=== PATIENT | female | born 1985 | race Caucasian/White ===

== ENCOUNTER 2017-06-05 11:17 | Outpatient (CLI) | payer MEDICAID ==
[~2017-06-05] VITALS: Ht 170.2 cm; Wt 83.3 kg
[2017-06-05 11:40] VITALS: Ht 170.2 cm; Wt 83.3 kg
[2017-06-05] MEDS ORDERED: PREN1TAB79 PO (11:40)
[2017-06-05 11:41] VITALS: BP 111/71; PULSE 94; RESP 20
--- NOTE | 2017-06-05 13:38 | RADRPT ---
PROCEDURE: OB ultrasound CLINICAL INDICATION: Leaking amniotic fluid TECHNIQUE: Multiple transverse and longitudinal OB images of the pelvis were obtained. The images were reviewed on a high-resolution PACS workstation. COMPARISON: None FINDINGS: A single live intrauterine is seen. The presentation is vertex. The placenta is grade 1 a nd anterior in location. No evidence of placenta abruption or previa is seen. The heart rate i s 142 beats per minute. The amniotic fluid index is 13.2 cm. movement 2 tone 2 breathing 2 Amniotic fluid 2 IMPRESSION: Biophysical profile of 05/25. RPTAT: HPNM Physician Han Date Time Electronically viewed and signed by Physician Han on 06/05/2017 13:38 /
--- NOTE | 2017-06-05 13:39 | RADRPT ---
PROCEDURE: OB ultrasound CLINICAL INDICATION: Leaking amniotic fluid TECHNIQUE: Multiple transverse and longitudinal OB images of the pelvis were obtained. The images were reviewed on a high-resolution PACS workstation. COMPARISON: None FINDINGS: A single live intrauterine is seen. The presentation is vertex. The placenta is grade 1 a nd anterior in location. The cervix is closed. No evidence of funneling is seen. The cervix length i s 3.7 cm. The heart rate is 130 beats per minute. IMPRESSION: Cervix length = 3.7 cm. RPTAT: HPNM Physician Han Date Time Electronically viewed and signed by Physician Han on 06/05/2017 13:39 /
--- NOTE | 2017-06-05 13:59 | QN ---
Documentation Comment Progress Note Chilo Carson/Dr White 32 y.o. with an IUP at 34w 1d sent from the clinic with c/o clear d/c to r /o PPROM. Pt states that the d/c is mucousy. No VB. +FM. PMHx: none. PSHx: none. POBHx: x 1. NKDA. T=98.1 BP 111/71. NST: baseline 140 bpm with accels to 155 bpm. No decels. No UC's. Vag exam: clear mucous only; ROM-plus negative. BPP 8/8. RODOLFO 13.2. U/A negative. A: IUP at 34w 1d. Membranes intact. P: D/C home. ALAINA MOLINA MD Jun 05, 2017 13:59
== END 2017-06-05 14:13 | disposition home or self-care (01) ==
LOC: OBT 11:17 → L-D 11:22 → OBT 14:13
PROVIDERS: ATTEND Obstetrics & Gynecology
DX: O26.893 Other specified pregnancy related conditions, third trimester (principal); Z3A.34 34 weeks gestation of pregnancy; N89.8 Other specified noninflammatory disorders of vagina
CPT/HCPCS: 76817; 76818; 84112; Z7500; G0463

== ENCOUNTER 2017-07-08 18:41 | Outpatient (CLI) | payer MEDICAID ==
[~2017-07-08] VITALS: Ht 170.2 cm; Wt 84.7 kg
[~2017-07-08 18:41] MED LIST: PREN1TAB79 PO
[2017-07-08 19:00] VITALS: Ht 170.2 cm; Wt 84.7 kg
[2017-07-08 19:01] VITALS: BP 127/72; PULSE 93; RESP 18
--- NOTE | 2017-07-08 20:04 | RADRPT ---
PROCEDURE: Obstetrical ultrasound for biophysical profile CLINICAL INDICATION: Biophysical profile. . TECHNIQUE: Obstetrical ultrasound of the uterus for biophysical profile. Transabdominal views are obtained. COMPARISON: 07/06/2017 FINDINGS: Single intrauterine gestation. Presentation: Cephalic. Placenta: Anterior. No evidence of placental abruption. No evidence of placenta previa. breathing movement = 2/2 tone = 2/2 motion = 2/2 RODOLFO = 2/2 RODOLFO = 9.1 cm heart rate: 150 beats per minute IMPRESSION: Single intrauterine gestation. Biophysical profile 05/25 RPTAT: AADD .Migel Acevedo MD, MD Date Time Electronically viewed and signed by .Migel Acevedo MD, on 07/08/2017 20:04 .B/
--- NOTE | 2017-07-08 21:05 | TRIAGE ---
OB Triage Datetime Report Generated by CPN: 07/08/2017 21:05 Datetime: 07/08/2017 20:33 Contraction Comments: TOCO REMOVED Comments: US REMOVED Datetime: 07/08/2017 20:30 Stage of : OB Triage Labor Evaluation Frequency: NONE Monitor Mode: External Resting Tone [place]: Relaxed Contraction Comments: PT DENIES FEELING CONTRACTIONS Heart Rate FHR Baseline Rate: 145 Monitor Mode: External US Variability: Moderate 6-25 bpm Accelerations: 15X15 Decelerations: None Datetime: 07/08/2017 20:00 Stage of : OB Triage Labor Evaluation Frequency: NONE Monitor Mode: External Resting Tone [place]: Relaxed Contraction Comments: PT DENIES FEELING ANY UCS Heart Rate FHR Baseline Rate: 145 Monitor Mode: External US Variability: Moderate 6-25 bpm Accelerations: 15X15 Decelerations: None Pain Assessment Pain Scale: 0 Pain Presence: None/Denies Pain Goal: 3 Datetime: 07/08/2017 19:56 Vaginal Exam Dilatation (cms): 0.0 Effacement (%): 0 Station: -3 Membrane Status: Intact Datetime: 07/08/2017 19:50 Stage of : OB Triage Datetime: 07/08/2017 19:04 Stage of : OB Triage Datetime: 07/08/2017 18:56 Stage of : OB Triage Assessment Type: Triage Maternal Assessment Level of Consciousness: Fully Conscious DTR's/Clonus: DTRs 2+; No Clonus Headache: Denies Blurred Vision: No Respiratory Effort: Unlabored; Regular Rhythm; Equal Expansion Breath Sounds, Left: Clear and Equal Breath Sounds, Right: Clear and Equal Nausea/Vomiting: Denies RUQ Epigastric Pain: Denies Facial Edema: None Temperature Route: Axillary Fall Risk Assessment History of Falling: (0) No Secondary Diagnosis: (0) No Ambulatory Aid: (0) Bedrest/Nurse Assist IV Therapy: (0) No Gait: (0) Normal/Bedrest/Immobile Mental Status: (0) Oriented to Own Ability Fall Score: 0 Fall Risk Score Definition: No Risk: No action required Labor Evaluation Frequency: 0 Monitor Mode: External Pattern: Normal: <= 5 Contractions in 10 Minutes Resting Tone [place]: Relaxed Heart Rate FHR Baseline Rate: 145 Monitor Mode: External US Variability: Moderate 6-25 bpm Decelerations: None Pain Assessment Pain Scale: 0 Pain Presence: None/Denies Pain Type: N/A Pain Goal: 3 Pain Relief Measures: Comfort Measures Datetime: 07/08/2017 18:54 Time of Arrival: 07/08/2017 18:37 EGA: 39.1 Arrived By: Ambulatory Arrived From: Home Chief Complaint: F/U REPEAT NST/BPP FOR HX VARIABLES, DENIES LEAKING OF FLUID, BLEEDING OR UC'S Movement: Present Contractions: Denies/Absent Rupture of Membranes: Denies Vaginal Bleeding: None Vaginal Discharge: Denies Recent Sexual Intercouse: Denies Abdominal Trauma: Not Applicable Patient Complaints: None Time Provider Notified: 07/08/2017 19:04 Provider Notified: [email or web address] Initial Plan: MONITOR, BPP Datetime: 07/06/2017 11:59 Vaginal Exam Dilatation (cms): 0.0 Exam By: dr ghayoori Datetime: 07/06/2017 10:07 Labor Evaluation Frequency: 0 Monitor Mode: External Resting Tone [place]: Relaxed Heart Rate FHR Baseline Rate: 140 Monitor Mode: External US FHR Baseline Changes: No Baseline Change Variability: Moderate 6-25 bpm Accelerations: 15X15 Decelerations: None Category: Category I Pain Presence: None/Denies Datetime: 07/06/2017 08:59 Labor Evaluation Frequency: occasional irritability Monitor Mode: External Quality: Mild Resting Tone [place]: Relaxed Heart Rate FHR Baseline Rate: 140 Monitor Mode: External US FHR Baseline Changes: No Baseline Change Variability: Moderate 6-25 bpm Accelerations: 15X15 Decelerations: None Category: Category I Pain Presence: None/Denies Datetime: 07/06/2017 07:42 Assessment Type: Ongoing Assessment Labor Evaluation Frequency: irritability Monitor Mode: External Quality: Mild Resting Tone [place]: Relaxed Contraction Comments: pt denies feeling contractions or cramping, denies leaking of fluid or bloo d from vagina Heart Rate FHR Baseline Rate: 130 Monitor Mode: External US FHR Baseline Changes: No Baseline Change Variability: Moderate 6-25 bpm Accelerations: 15X15 Decelerations: None Category: Category I Datetime: 07/06/2017 07:37 Assessment Type: Ongoing Assessment Maternal Assessment Level of Consciousness: Fully Conscious DTR's/Clonus: DTRs 2+; No Clonus Headache: Denies Blurred Vision: No Respiratory Effort: Unlabored; Regular Rhythm; Equal Expansion Breath Sounds, Left: Clear and Equal Breath Sounds, Right: Clear and Equal Nausea/Vomiting: Denies RUQ Epigastric Pain: Denies Facial Edema: None Fall Risk Assessment History of Falling: (0) No Secondary Diagnosis: (0) No Ambulatory Aid: (0) Bedrest/Nurse Assist Gait: (0) Normal/Bedrest/Immobile Mental Status: (0) Oriented to Own Ability Datetime: 07/06/2017 07:00 Labor Evaluation Frequency: x1 Monitor Mode: External Duration (sec)2399: 60 Quality: Mild Resting Tone [place]: Relaxed Heart Rate FHR Baseline Rate: 135 Monitor Mode: External US Variability: Moderate 6-25 bpm Accelerations: 15X15 Decelerations: None Category: Category I Pain Presence: None/Denies Datetime: 07/06/2017 06:00 Labor Evaluation Frequency: 0 Monitor Mode: External Duration (sec)2399: denies Resting Tone [place]: Relaxed Heart Rate FHR Baseline Rate: 135 Monitor Mode: External US Variability: Moderate 6-25 bpm Accelerations: 15X15 Decelerations: None Category: Category I Pain Presence: None/Denies Pain Type: N/A Datetime: 07/06/2017 05:08 Stage of : Antepartum Temperature Route: Oral Pain Presence: None/Denies Datetime: 07/06/2017 05:00 Labor Evaluation Frequency: x2 Monitor Mode: External Duration (sec)2399: 60-80 Quality: Mild Resting Tone [place]: Relaxed Heart Rate FHR Baseline Rate: 135 Monitor Mode: External US Variability: Moderate 6-25 bpm Accelerations: 15X15 Decelerations: None Category: Category I Pain Presence: None/Denies Pain Type: N/A Datetime: 07/06/2017 04:00 Labor Evaluation Frequency: x2 Monitor Mode: External Duration (sec)2399: 70-80 Quality: Mild Resting Tone [place]: Relaxed Heart Rate FHR Baseline Rate: 140 Monitor Mode: External US Variability: Moderate 6-25 bpm Accelerations: 15X15 Decelerations: None Category: Category I Pain Presence: None/Denies Datetime: 07/06/2017 03:00 Labor Evaluation Frequency: x3 Monitor Mode: External Duration (sec)2399: 40-70 Quality: Mild Resting Tone [place]: Relaxed Heart Rate FHR Baseline Rate: 135 Monitor Mode: External US Variability: Moderate 6-25 bpm Accelerations: 15X15 Decelerations: None Category: Category I Datetime: 07/06/2017 02:00 Labor Evaluation Frequency: irregular Monitor Mode: External Duration (sec)2399: 40-70 Quality: Mild Resting Tone [place]: Relaxed Heart Rate FHR Baseline Rate: 135 Monitor Mode: External US Variability: Moderate 6-25 bpm Accelerations: 15X15 Decelerations: None Category: Category I Datetime: 07/06/2017 01:00 Labor Evaluation Frequency: 0 Monitor Mode: External Resting Tone [place]: Relaxed Heart Rate FHR Baseline Rate: 135 Monitor Mode: External US Variability: Moderate 6-25 bpm Accelerations: 15X15 Decelerations: None Category: Category I Datetime: 07/06/2017 00:00 Labor Evaluation Frequency: 0 Monitor Mode: External Duration (sec)2399: denies Resting Tone [place]: Relaxed Heart Rate FHR Baseline Rate: 140 Monitor Mode: External US Variability: Moderate 6-25 bpm Accelerations: 15X15 Decelerations: None Category: Category I Pain Presence: None/Denies Pain Type: N/A Datetime: 07/05/2017 23:00 Labor Evaluation Frequency: 0 Monitor Mode: External Resting Tone [place]: Relaxed Heart Rate FHR Baseline Rate: 140 Variability: Moderate 6-25 bpm Accelerations: Prolonged Decelerations: None Category: Category I Pain Presence: None/Denies Pain Type: N/A Datetime: 07/05/2017 22:00 Labor Evaluation Frequency: 0 Monitor Mode: External Duration (sec)2399: denies Resting Tone [place]: Relaxed Heart Rate FHR Baseline Rate: 140 Monitor Mode: External US Variability: Moderate 6-25 bpm Accelerations: 15X15 Decelerations: None Category: Category I Pain Presence: None/Denies Pain Type: N/A Datetime: 07/05/2017 21:00 Labor Evaluation Frequency: 0 Monitor Mode: External Duration (sec)2399: denies Resting Tone [place]: Relaxed Heart Rate FHR Baseline Rate: 135 Monitor Mode: External US Variability: Moderate 6-25 bpm Accelerations: 15X15 Decelerations: None Category: Category I Pain Presence: None/Denies Pain Type: N/A Datetime: 07/05/2017 19:57 Stage of : Antepartum Assessment Type: Ongoing Assessment Maternal Assessment Level of Consciousness: Fully Conscious DTR's/Clonus: DTRs 2+; No Clonus Headache: Denies Blurred Vision: No Respiratory Effort: Unlabored; Regular Rhythm; Equal Expansion Breath Sounds, Left: Clear and Equal Breath Sounds, Right: Clear and Equal Nausea/Vomiting: Denies RUQ Epigastric Pain: Denies Lower Extremities Edema: None Degree: None Upper Extremities Edema: None Degree: None Facial Edema: None Temperature Route: Oral Fall Risk Assessment History of Falling: (0) No Secondary Diagnosis: (0) No Ambulatory Aid: (0) Bedrest/Nurse Assist IV Therapy: (0) No Gait: (0) Normal/Bedrest/Immobile Mental Status: (0) Oriented to Own Ability Fall Score: 0 Fall Risk Score Definition: No Risk: No action required Pain Presence: None/Denies Datetime: 07/05/2017 19:55 Stage of : Antepartum Monitor Mode: External Contraction Comments: placed. Monitor Mode: External US Comments: placed Datetime: 07/05/2017 19:43 Labor Evaluation Frequency: None noted or palpated Monitor Mode: External Heart Rate FHR Baseline Rate: 135 Monitor Mode: External US Variability: Moderate 6-25 bpm Accelerations: 15X15 Decelerations: Variable (Annotations: x1) Category: Category II Pain Assessment Pain Scale: 0 Pain Presence: None/Denies Pain Type: N/A Pain Assessment Comments: Pt denies any pain Datetime: 07/05/2017 19:02 Stage of : OB Triage Datetime: 07/05/2017 19:00 Vaginal Exam Dilatation (cms): 0.0 Exam By: S ZACK Vaginal Bleeding: None Cervix, Consistency: Soft Cervix, Position: Posterior Presentation 'A': Cephalic Datetime: 07/05/2017 18:40 Stage of : OB Triage Assessment Type: Triage Maternal Assessment Level of Consciousness: Fully Conscious DTR's/Clonus: DTRs 2+; No Clonus Headache: Denies Blurred Vision: No Respiratory Effort: Unlabored; Regular Rhythm; Equal Expansion Breath Sounds, Left: Clear and Equal Breath Sounds, Right: Clear and Equal Nausea/Vomiting: Denies RUQ Epigastric Pain: Denies Facial Edema: None Temperature Route: Axillary Fall Risk Assessment History of Falling: (0) No Secondary Diagnosis: (0) No Ambulatory Aid: (0) Bedrest/Nurse Assist IV Therapy: (0) No Gait: (0) Normal/Bedrest/Immobile Mental Status: (0) Oriented to Own Ability Fall Score: 0 Fall Risk Score Definition: No Risk: No action required Labor Evaluation Frequency: 0 Monitor Mode: External Pattern: Normal: <= 5 Contractions in 10 Minutes Resting Tone [place]: Relaxed Heart Rate FHR Baseline Rate: 135 Monitor Mode: External US Variability: Moderate 6-25 bpm Accelerations: 10X10 Decelerations: Variable Category: Category II Pain Assessment Pain Scale: 0 Pain Presence: None/Denies Pain Type: N/A Pain Goal: 3 Pain Relief Measures: Comfort Measures Datetime: 07/05/2017 16:50 Time of Arrival: 07/05/2017 16:50 EGA: 38.5 Arrived By: Ambulatory Arrived From: Office Chief Complaint: SENT FROM OFFICE FOR IUGR, Movement: Present Contractions: Denies/Absent Rupture of Membranes: Denies Vaginal Discharge: Denies Recent Sexual Intercouse: Denies Abdominal Trauma: Not Applicable Patient Complaints: None Time Provider Notified: 07/05/2017 19:00 Provider Notified: GHAYOORI Initial Plan: MONITOR, BPP Datetime: 06/05/2017 13:48 Labor Evaluation Frequency: 0 Monitor Mode: External Resting Tone [place]: Relaxed Heart Rate FHR Baseline Rate: 140 Variability: Moderate 6-25 bpm Accelerations: 15X15 Decelerations: None Category: Category I Datetime: 06/05/2017 11:33 Assessment Type: Triage Maternal Assessment Level of Consciousness: Fully Conscious DTR's/Clonus: DTRs 2+; No Clonus Headache: Denies Blurred Vision: No Respiratory Effort: Unlabored; Regular Rhythm; Equal Expansion Breath Sounds, Left: Clear and Equal Breath Sounds, Right: Clear and Equal Nausea/Vomiting: Denies RUQ Epigastric Pain: Denies Lower Extremities Edema: None Upper Extremities Edema: None Facial Edema: None Fall Risk Assessment History of Falling: (0) No Secondary Diagnosis: (0) No Ambulatory Aid: (0) Bedrest/Nurse Assist IV Therapy: (0) No Gait: (0) Normal/Bedrest/Immobile Mental Status: (0) Oriented to Own Ability Fall Score: 0 Fall Risk Score Definition: No Risk: No action required Datetime: 06/05/2017 11:32 Heart Rate FHR Baseline Rate: 145 Variability: Moderate 6-25 bpm Datetime: 06/05/2017 11:31 EGA: -592.5 Datetime: 06/05/2017 11:28 Time of Arrival: 05/28/2005 11:05 Arrived By: Ambulatory Arrived From: Office Chief Complaint: discharge x2 months sent from clinic to r/o pprom. pt. states she had a urinary i nfection 3 weeks ago and was told by the clinic no more infection and discharge is normal but want t o r/o pprom Movement: Present Contractions: Denies/Absent Rupture of Membranes: Unsure Vaginal Bleeding: None Vaginal Discharge: Present Recent Sexual Intercouse: Denies Abdominal Trauma: Not Applicable Patient Complaints: Other Time Provider Notified: 06/05/2017 11:38 Provider Notified: primo Initial Plan: sravanthi,bpp, rom+, ua C_S from dr. tillman and have laborist eval. for d/c home if labs wnl Pain Presence: None/Denies Datetime: 06/05/2017 11:25 Headache: Denies Blurred Vision: No Datetime: 06/05/2017 11:22 Resting Tone [place]: Relaxed
== END 2017-07-08 20:51 | disposition home or self-care (01) ==
LOC: OBT 18:41 → L-D 18:44 → OBT 20:51
PROVIDERS: ATTEND Obstetrics & Gynecology
DX: O36.5930 Maternal care for other known or suspected poor fetal growth, third trimester, not applicable or unspecified (principal); Z3A.38 38 weeks gestation of pregnancy
CPT/HCPCS: 76818; G0463

== ENCOUNTER 2017-07-09 11:27 | Inpatient (IN) | payer MEDICAID ==
[~2017-07-09] VITALS: Ht 160 cm; Wt 83.7 kg
[2017-07-09 11:34] VITALS: Ht 160 cm; Wt 83.7 kg
[2017-07-09] MEDS: LACTATED RINGER'S 1,000 ML IV SCH ×3 (11:56→23:27)
[2017-07-09] MEDS ORDERED: MINERAL OIL LIGHT 10 ML VIAL TOP ONE (12:00)
[2017-07-09] MEDS ORDERED: OXYTOCIN 30 UNITS/LR 500 ML IV PRN (12:00)
[2017-07-09] MEDS ORDERED: LIDOCAINE 1% (MPF) 30 ML INJ INJ PRN (12:00)
[2017-07-09] MEDS ORDERED: CARBOPROST 250 MCG INJ IM PRN (12:00)
[2017-07-09] MEDS ORDERED: OXYTOCIN 30 UNITS/LR 500 ML IV SCH ×2 (12:00)
[2017-07-09] MEDS ORDERED: BUTORPHANOL 2 MG INJ IV PRN (12:00)
[2017-07-09] MEDS ORDERED: LACTATED RINGER'S 1,000 ML IV PRN (12:00)
[2017-07-09] MEDS ORDERED: METHYLERGONOVINE 0.2 MG INJ IM PRN (12:00)
[2017-07-09] MEDS ORDERED: IBUPROFEN 600 MG TAB PO PRN (12:00)
[2017-07-09] MEDS ORDERED: MISOPROSTOL 200 MCG TAB PR PRN (12:00)
[2017-07-09 12:10] LABS: BASOPHILS % 0.2 % (0.0-2.0); EOSINOPHILS % 0.2 % (0.0-7.0); HEMATOCRIT 37.9 % (37.0-47.0); HEMOGLOBIN 12.8 g/dl (12.0-16.0); LYMPHOCYTES # 1.8 10^3/ul (0.8-2.9); LYMPHOCYTES % 18.1 % (15.0-51.0); MEAN CORPUSCULAR HEMOGLOBIN 31.8 pg (29.0-33.0); MEAN CORPUSCULAR HGB CONC 33.8 g/dl (32.0-37.0); MEAN PLATELET VOLUME 9.3 fl (7.4-10.4); MONOCYTE # 0.6 10^3/ul (0.3-0.9); MONOCYTES % 5.6 % (0.0-11.0); NEUTROPHIL # 7.7 10^3/ul (1.6-7.5); NEUTROPHILS % 75.5 % (39.0-77.0); PLATELET COUNT 244 10^3/UL (140-415); RED BLOOD COUNT 4.03 10^6/ul (4.20-5.40); RED CELL DISTRIBUTION WIDTH 13.1 % (11.5-14.5); WHITE BLOOD COUNT 10.1 10^3/ul (4.8-10.8)
[2017-07-09 12:25] LABS: INR 0.9; PROTIME 12.1 Sec (12.2-14.2); PT RATIO 0.9
[2017-07-09 12:26] LABS: PARTIAL THROMBOPLASTIN TIME 24.7 Sec (25.0-35.0)
[2017-07-09] MEDS ORDERED: DINOPROSTONE 10 MG VAG SUPP VAG ONE (14:00)
--- NOTE | 2017-07-09 14:41 | RADRPT ---
PROCEDURE: US evaluation of position. CLINICAL INDICATION: Uncertain position. TECHNIQUE: Multiple sonographic images of the gravid uterus were obtained utilizing segura-scale fede ging. Sagittal and transverse images were obtained. The images were reviewed on a PACS workstation . The position was determined. COMPARISON: 07/08/2017. FINDINGS: There is a single live intrauterine . heart rate is 137 beats per minute. Position is cephalic and placenta is anterior grade II with no abruption or previa. There is no placenta previa or abruption. IMPRESSION: 1. position is cephalic. RPTAT: QQ .Lemuel Teresa MD, MD Date Time Electronically viewed and signed by .Lemuel Teresa MD, on 07/09/2017 14:41 .R/
[2017-07-09] MEDS ORDERED: FENTAnyl 2MCG/ML-ROPIV 0.2% 100 ML ONE (22:44)
[2017-07-09] MEDS ORDERED: NALOXONE (0.4 MG/ML) INJ IV PRN (23:00)
[2017-07-09] MEDS ORDERED: FENTAnyl 2MCG/ML-ROPIV 0.2% 100 ML BAG EPI SCH (23:00)
[2017-07-09] MEDS ORDERED: DIPHENHYDRAMINE 50 MG INJ IV PRN (23:00)
[2017-07-09] MEDS ORDERED: EPHEDrine SULFATE 50 MG/5 ML SYG IV PRN (23:00)
[2017-07-09] MEDS ORDERED: ONDANSETRON 4 MG INJ IV PRN (23:00)
[2017-07-10 02:00] VITALS: BP 117/62; PULSE 62; RESP 18; RESP 19
--- NOTE | 2017-07-10 02:01 | HP ---
Date/Time of Note Date/Time of Note DATE: 07/10/17 TIME: 02:00 OB - History Hx of Present Free Text/Dictation 39+wks GA with some variables : 2 Para: 1 Care: Good Care Ultrasounds: Normal mid trimester US Obstetrical Complications: None Medical Complications: None Past Family/Social History * Past Medical, Surgical, Family and Obstetric Histories reviewed from chart. OB Admission Exam Physical Exam Abdomen: WNL Reflexes: Normal Cervical Dilatation: Fingertip Effacement: 0% Station: Ballotable Membranes: Intact Heart Rate: 140's Accelerations: Accelerations Present Decelerations: No Decelerations Varibility: Moderate Contractions on Admission: None Last 72 hours Lab Results CBC & BMP 07/09/17 12:00 OB Assessment/Plan Reason for admission: induction of labor ANKUSH ARENAS M.D. Jul 10, 2017 02:01
--- NOTE | 2017-07-10 02:03 | LDN ---
Date/Time of Note Date/Time of Note DATE: 07/10/17 TIME: 02:02 Delivery Summary Weeks of Gestation 39+ Placenta Delivered: Spontaneously Meconium: none Episiotomy: No Perineal laceration: 1 Anesthesia type: Epidural Estimated blood loss: 200 Sponge & Needle done & correct: Yes All needle counts correct: Yes Any foreign bodies felt in the: No Problems: Delivery Information Sex Infant Sex: female (8) Apgars 1 Minute: 8 5 Minute: 9 Suctioning Nose & mouth suctioned at jaskaran: Yes Delee suction performed: Yes Umbilical Cord Umbilical cord with: 3 Vessels Cord presentations: nuchal cord (x2) Cord Blood was obtained: Yes Mother & Baby Disposition Disposition Mom & Baby to Maternity; Good: Yes Baby to NICU: No ANKUSH ARENAS M.D. Jul 10, 2017 02:03
[2017-07-10] MEDS: LACTATED RINGER'S 1,000 ML IV* SCH ×3 (02:21→18:21)
[2017-07-10 02:30] VITALS: BP 114/67; PULSE 77; RESP 20
[2017-07-10] MEDS ORDERED: SENNA/DOCUSATE NA (8.6MG/50MG) TAB PO PRN (02:30)
[2017-07-10] MEDS ORDERED: DIBUCAINE 1% 30 GM OINT PR PRN (02:30)
[2017-07-10] MEDS ORDERED: METHYLERGONOVINE 0.2 MG INJ IM PRN (02:30)
[2017-07-10] MEDS ORDERED: MISOPROSTOL 200 MCG TAB PR PRN (02:30)
[2017-07-10] MEDS ORDERED: OXYTOCIN 30 UNITS/LR 500 ML IV PRN (02:30)
[2017-07-10] MEDS ORDERED: BENZOCAINE 20% 56 ML SPRAY TOP PRN (02:30)
[2017-07-10] MEDS ORDERED: CARBOPROST 250 MCG INJ IM PRN (02:30)
[2017-07-10] MEDS ORDERED: WITCH HAZEL/GLYCERIN PAD PR PRN (02:30)
[2017-07-10 04:30] VITALS: BP 116/66; PULSE 77; RESP 20
[2017-07-10] MEDS: IBUPROFEN 600 MG TAB PO SCH ×3 (06:00→18:00)
[2017-07-10 07:24] LABS: BASOPHILS % 0.2 % (0.0-2.0); EOSINOPHILS % 0.1 % (0.0-7.0); HEMATOCRIT 37.6 % (37.0-47.0); LYMPHOCYTES # 1.5 10^3/ul (0.8-2.9); MEAN CORPUSCULAR HEMOGLOBIN 32.7 pg (29.0-33.0); MEAN CORPUSCULAR HGB CONC 34.6 g/dl (32.0-37.0); MEAN CORPUSCULAR VOLUME 94.7 fl (82.0-101.0); MEAN PLATELET VOLUME 9.7 fl (7.4-10.4); MONOCYTE # 1.1 10^3/ul (0.3-0.9); MONOCYTES % 6.9 % (0.0-11.0); NEUTROPHIL # 13.5 10^3/ul (1.6-7.5); NEUTROPHILS % 83.1 % (39.0-77.0); PLATELET COUNT 245 10^3/UL (140-415); RED BLOOD COUNT 3.97 10^6/ul (4.20-5.40); RED CELL DISTRIBUTION WIDTH 12.9 % (11.5-14.5); WHITE BLOOD COUNT 16.2 10^3/ul (4.8-10.8)
[2017-07-10 08:30] VITALS: BP 104/59; PULSE 64; RESP 17
[2017-07-10 12:00] VITALS: BP 113/71; PULSE 64; RESP 17
[2017-07-10 16:00] VITALS: BP 113/67; PULSE 64; RESP 16
--- NOTE | 2017-07-10 22:21 | QN ---
Documentation Comment PPD#1 is stable afebrile tolerates diet No VB +BM +Voids VS stable Gen NAD Abd soft NT ND Genitalia No blood at perinium --->discharge Home ANKUSH ARENAS M.D. Jul 10, 2017 22:21
--- NOTE | 2017-07-10 22:23 | DS ---
Date/Time of Note Date/Time of Note DATE: 07/10/17 TIME: 22:23 Discharge Summary Admission/Discharge Info Admit Date/Time Jul 09, 2017 at 11:27 Discharge Date/Time Jun Discharge Diagnosis Patient Condition: Good Procedures Vaginal delivery Hospital Course Uneventful Home Meds Reported Medications Vit W-Ca,Fe,FA(<1 mg) ( Vitamins) 1 Each Tablet, 1 EACH PO, TAB 06/05/17 Primary Care Provider Not On Staff Doctor Pending Labs Laboratory Tests Test 07/10/17 06:22 White Blood Count 16.210^3/ul (4.8-10.8) Red Blood Count 3.9710^6/ul (4.20-5.40) Hemoglobin 13.0g/dl (12.0-16.0) Hematocrit 37.6% (37.0-47.0) Mean Corpuscular Volume 94.7fl (82.0-101.0) Mean Corpuscular Hemoglobin 32.7pg (29.0-33.0) Mean Corpuscular Hemoglobin Concent 34.6g/dl (32.0-37.0) Red Cell Distribution Width 12.9% (11.5-14.5) Platelet Count 53201^3/UL (140-415) Mean Platelet Volume 9.7fl (7.4-10.4) Neutrophils % 83.1% (39.0-77.0) Lymphocytes % 9.0% (15.0-51.0) Monocytes % 6.9% (0.0-11.0) Eosinophils % 0.1% (0.0-7.0) Basophils % 0.2% (0.0-2.0) Nucleated Red Blood Cells % 0.0/100WBC (0.0-0.0) Neutrophils # 13.510^3/ul (1.6-7.5) Lymphocytes # 1.510^3/ul (0.8-2.9) Monocytes # 1.110^3/ul (0.3-0.9) Eosinophils # 0.010^3/ul (0.0-0.5) Basophils # 0.010^3/ul (0.0-0.1) Nucleated Red Blood Cells # 0.010^3/ul (0.0-0.0) ANKUSH ARENAS M.D. Jul 10, 2017 22:23
[2017-07-11] MEDS: IBUPROFEN 600 MG TAB PO SCH ×4 (01:15→18:00)
[2017-07-11] MEDS: LACTATED RINGER'S 1,000 ML IV* SCH ×2 (02:21→10:21)
[2017-07-11 04:20] VITALS: BP 99/55; RESP 18
[2017-07-11 08:35] VITALS: BP 102/68; PULSE 66; RESP 17
== END 2017-07-11 18:30 | disposition home or self-care (01) | DRG 775 ==
LOC: L-D 11:27 → PP1 07-10 01:59 → EDSTATUS 07-16 11:25
PROVIDERS: ADMIT Obstetrics & Gynecology; ATTEND Obstetrics & Gynecology
PROC: 10E0XZZ Delivery of Products of Conception, External Approach (ICD-10-PCS; principal; 2017-07-09)
PROC: 3E033VJ Introduction of Other Hormone into Peripheral Vein, Percutaneous Approach (ICD-10-PCS; 2017-07-09)
DX: O69.81X0 Labor and delivery complicated by cord around neck, without compression, not applicable or unspecified (principal); Z37.0 Single live birth; Z3A.39 39 weeks gestation of pregnancy
CPT/HCPCS: 62319; 76815; 85025; 85610; 85730; 86592; 86900; 86901; J0595; J2590; J3010; J7120